=== PATIENT | female | born 1965 | race Two or more races ===

== ENCOUNTER 2018-10-31 07:53 | Day surgery (SDC) | payer OTHER ==
[~2018-10-31 07:53] MED LIST: SIMVASTATIN20 MG PO; SYNTHROID50 MCG PO; VITAMIN D2000 UNI1 PO
[2018-10-31] MEDS ORDERED: PERCOCET 5-3251 EACH PO (11:44)
== END 2018-10-31 16:10 | disposition home or self-care (01) ==
LOC: CIR.AMB 07:53
DX: C73 Malignant neoplasm of thyroid gland (principal)

== ENCOUNTER 2019-04-03 06:33 | Day surgery (SDC) | payer OTHER ==
[~2019-04-03 06:33] MED LIST changes: +PERCOCET 5-3251 EACH PO; +SYNTHROID75 MCG PO
[2019-04-03] MEDS ORDERED: PERCOCET 5-3251 EACH PO (10:03)
== END 2019-04-03 12:35 | disposition home or self-care (01) ==
LOC: CIR.AMB 06:33
DX: C73 Malignant neoplasm of thyroid gland (principal)